=== PATIENT | female | born 1960 | race Caucasian/White ===

== ENCOUNTER 2017-02-13 13:45 | Outpatient (CLI) | payer BC | END 2017-02-13 13:46 | disposition home or self-care (01) | LOC: BICMAMMO 13:45 | PROVIDERS: ATTEND Orthopaedic Surgery Orthopaedic Surgery of the Spine | DX: Z12.31 Encounter for screening mammogram for malignant neoplasm of breast (principal) | CPT/HCPCS: 77063 ==

== ENCOUNTER 2018-02-25 16:10 | Outpatient (CLI) | payer BC | END 2018-02-25 16:11 | disposition home or self-care (01) | LOC: BICMAMMO 16:10 | PROVIDERS: ATTEND Obstetrics & Gynecology | DX: Z12.31 Encounter for screening mammogram for malignant neoplasm of breast (principal) | CPT/HCPCS: 77063; 77067 ==

== ENCOUNTER 2019-10-02 01:12 | Emergency (ER) | payer BC ==
[2019-10-02] MEDS ORDERED: Mag-Al 1200 mg/1200 mg/30 ML UDCUP ONE (01:41)
[2019-10-02] MEDS ORDERED: Lidocaine Viscous Sol 2% 15 ml UD Cup ONE (01:41)
[2019-10-02] MEDS ORDERED: Metoclopramide HCl 10 MG/2 ML VIAL ONE (01:45)
[2019-10-02] MEDS ORDERED: diphenhydrAMINE 50 MG/ML VIAL ONE (01:45)
[2019-10-02 02:08] LABS: Hemoglobin 13.1 g/dL (12.0-16.0); Mean Corpuscular HGB CONC 32.6 g/dL (32.0-36.0); Mean Corpuscular Hemoglobin 30.6 pg (27.0-31.0); Mean Corpuscular Volume 93.7 fL (78.0-98.0); Mean Platelet Volume 9.3 fL (7.4-10.4); Platelet Count 318 thou/uL (130-400); RBC Distribution Width 12.7 % (11.5-14.5); White Blood Cell (WBC) Count 15.8 thou/uL (4.8-10.8)
[2019-10-02] MEDS ORDERED: Dicyclomine 20 MG TAB ONE (02:17)
[2019-10-02 02:23] LABS: Anion Gap 14 mmol/L (10-20); BUN (Urea Nitrogen) 22 mg/dL (9.8-20.1); Calc. Creatinine Clearance 0 mL/min (70-130); Calcium 10.4 mg/dL (7.8-10.44); Carbon Dioxide 25 mmol/L (22-29); Chloride 104 mmol/L (98-107); Estimated GFR-MDRD 82; Glucose 137 mg/dL (70-105); Lipase 17 U/L (8-78); Potassium 4.2 mmol/L (3.5-5.1); Sodium 139 mmol/L (136-145)
[2019-10-02 02:51] LABS: Band 6 % (5-11); Eosinophils 1 % (0-10); Lymphocytes 17 % (21-51); MDiff Complete? YES; Monocytes 6 % (0-10); Neutrophil 70 % (42-75); Platelet Morphology Comment Appears Adequate
[2019-10-02 03:40] LABS: ALT (SGPT) 18 U/L (8-55); AST (SGOT) 23 U/L (5-34); Alkaline Phosphatase 79 U/L (40-110); Bilirubin, Direct 0.1 mg/dL (0.1-0.3); Bilirubin, Total 0.4 mg/dL (0.2-1.2); Protein, Total 7.1 g/dL (6.0-8.3)
[2019-10-02 03:41] LABS: Bilirubin Negative (Negative); Blood, Urine Negative (Negative); Clarity Clear (Clear); Glucose, Urine (Dipstick) Normal (Negative); Ketone, Urine Negative (Negative); Leukocyte Negative Leu/uL (Negative); Nitrite Negative (Negative); Protein, Urine (Dipstick) Negative (Neg-Trace); Specific Gravity, Urine 1.017 (1.002-1.036); Urobilinogen Normal mg/dL (Less than 2)
== END 2019-10-02 04:11 | disposition home or self-care (01) ==
LOC: ERS 01:12
DX: K21.9 Gastro-esophageal reflux disease without esophagitis (principal); E78.5 Hyperlipidemia, unspecified; F41.9 Anxiety disorder, unspecified; F32.9 Major depressive disorder, single episode, unspecified; Z79.899 Other long term (current) drug therapy
CPT/HCPCS: 80048; 80076; 81003; 83690; 85025; 93005; 96365; 96366; 96375; J1200; J2765

== ENCOUNTER 2020-07-05 12:45 | Outpatient (CLI) | payer BC | END 2020-07-05 12:46 | disposition home or self-care (01) | LOC: CT 12:45 | PROVIDERS: ATTEND Surgery | DX: M50.30 Other cervical disc degeneration, unspecified cervical region (principal); R51.9 Headache, unspecified; M47.812 Spondylosis without myelopathy or radiculopathy, cervical region; M43.17 Spondylolisthesis, lumbosacral region; Z98.890 Other specified postprocedural states; Z98.1 Arthrodesis status | CPT/HCPCS: 72050; 72120; 72125; 72141 ==

== ENCOUNTER 2022-01-21 18:37 | Emergency (ER) | payer BC ==
[2022-01-21] MEDS ORDERED: Dexamethasone 10 MG/ML VIAL ONE (19:18)
[2022-01-21] MEDS ORDERED: Morphine 4 MG/ML VIAL ONE (19:18)
== END 2022-01-21 20:47 | disposition home or self-care (01) ==
LOC: ERS 18:37
DX: M79.662 Pain in left lower leg (principal); M51.36 Other intervertebral disc degeneration, lumbar region; I10 Essential (primary) hypertension; E78.5 Hyperlipidemia, unspecified; F17.210 Nicotine dependence, cigarettes, uncomplicated; Z79.899 Other long term (current) drug therapy
CPT/HCPCS: 96374; 96375; J1100; J2270

== ENCOUNTER 2022-01-24 11:56 | Outpatient (CLI) | payer BC ==
[2022-01-24 13:06] LABS: Hemoglobin 12.9 g/dL (12.0-15.5); Mean Corpuscular HGB CONC 33.1 g/dL (32.0-36.0); Mean Corpuscular Hemoglobin 29.9 pg (27.0-33.0); Mean Corpuscular Volume 90.5 fl (81.6-98.3); Mean Platelet Volume 10.2 fl (7.4-10.4); Platelet Count 333 10x3/uL (150-450); RBC Distribution Width 13.7 % (11.5-14.5); Red Blood Cell (RBC) Count 4.31 10x6/uL (3.90-5.03)
[2022-01-24 13:18] LABS: INR-International Normal Ratio 0.9; PTT 24.1 sec (22.0-33.0); Prothrombin Time 9.6 sec (9.5-12.1)
[2022-01-24 13:25] LABS: Anion Gap 14 mmol/L (10-20); BUN (Urea Nitrogen) 10 mg/dL (9.8-20.1); Calc. Creatinine Clearance 0 mL/min (70-130); Calcium 9.4 mg/dL (7.8-10.44); Carbon Dioxide 27 mmol/L (22-29); Chloride 104 mmol/L (98-107); Estimated GFR 97; Glucose 83 mg/dL (70-105); Potassium 4.3 mmol/L (3.5-5.1); Sodium 141 mmol/L (136-145)
== END 2022-01-24 11:57 | disposition home or self-care (01) ==
LOC: LABBT 11:56
PROVIDERS: ATTEND Surgery
DX: Z01.818 Encounter for other preprocedural examination (principal); M51.16 Intervertebral disc disorders with radiculopathy, lumbar region; M48.062 Spinal stenosis, lumbar region with neurogenic claudication
CPT/HCPCS: 80048; 85027; 85610; 85730; 93005; 93010

== ENCOUNTER 2022-01-25 10:20 | Observation (INO) | payer BC ==
[2022-01-25] MEDS ORDERED: Lidocaine 1% MPF 2 ML VIAL ONE (10:52)
[2022-01-25] MEDS ORDERED: Sodium Chloride 0.9% 100 ML ONE (10:52)
[2022-01-25] MEDS ORDERED: CEFAZOLIN 2 GM VIAL ONE (10:52)
[2022-01-25] MEDS ORDERED: Thrombin 5000 UNITS/5 ML VIAL ONE (11:01)
[2022-01-25 12:07] LABS: SARS-CoV-2 NAA Rapid Test Not Detected (NotDetected)
[2022-01-25] MEDS ORDERED: FENTANYL 50 MCG/ML 1 ML VIAL ONE (12:08)
[2022-01-25] MEDS ORDERED: fentaNYL PF 100 MCG/2 ML SYRINGE ONE ×3 (12:25→15:12)
[2022-01-25] MEDS ORDERED: Dexamethasone 20 MG/5 ML VIAL ONE (12:48)
[2022-01-25] MEDS ORDERED: Ondansetron PF 4 MG/2 ML Vial ONE (12:48)
[2022-01-25] MEDS ORDERED: PROPOFOL 200 MG/20 ML VIAL ONE (12:48)
[2022-01-25] MEDS ORDERED: PHENYLEPHRINE-NS 100 MCG/ML 10 ML SYRINGE ONE (12:48)
[2022-01-25] MEDS ORDERED: Rocuronium Bromide 10 MG/ML (10ML VIAL) ONE (12:48)
[2022-01-25] MEDS ORDERED: SUGAMMADEX SODIUM 200 MG/2 ML VIAL ONE (14:37)
[2022-01-25] MEDS ORDERED: Ondansetron PF 4 MG/2 ML Vial IVP PRN (15:00)
[2022-01-25] MEDS ORDERED: Acetaminophen 325 MG TAB PO PRN (15:00)
[2022-01-25] MEDS ORDERED: Acetaminophen/Codeine 30-300mg Tablet PO PRN (15:00)
[2022-01-25] MEDS ORDERED: diphenhydrAMINE 25 MG CAP PO PRN (15:00)
[2022-01-25] MEDS ORDERED: traMADol HCl 50 MG TAB PO PRN (15:00)
[2022-01-25] MEDS ORDERED: tiZANidine HCl 4 MG TAB PO PRN (15:03)
[2022-01-25] MEDS ORDERED: hydrALAZINE 20 MG/ML VIAL SLOW IVP PRN (15:03)
[2022-01-25] MEDS ORDERED: Morphine 4 MG/ML VIAL SLOW IVP PRN (16:06)
[2022-01-25] MEDS: Sodium Chloride 0.9% 1,000 ML IV SCH (16:14)
[2022-01-25 16:25] VITALS: BMI 29.2
[2022-01-25] MEDS: HYDROcodone/Acetaminophen 10/325 mg Tablet PO PRN (18:18)
[2022-01-25] MEDS: CEFAZOLIN 2 GM in Sodium Chloride 0.9% 100 ML IVPB SCH (22:23)
[2022-01-26 03:51] VITALS: TEMP 98.7
[2022-01-26] MEDS: Sodium Chloride 0.9% 1,000 ML IV SCH (06:04)
[2022-01-26] MEDS: CEFAZOLIN 2 GM in Sodium Chloride 0.9% 100 ML IVPB SCH (06:04)
[2022-01-26] MEDS ORDERED: metFORMIN XR 500 MG TAB PO SCH (08:00)
[2022-01-26] MEDS: HYDROcodone/Acetaminophen 10/325 mg Tablet PO PRN (08:58)
[2022-01-26] MEDS ORDERED: Loratadine 10 MG TAB PO SCH (09:00)
[2022-01-26] MEDS ORDERED: Lisinopril 10 MG TAB PO SCH (09:00)
[2022-01-26] MEDS ORDERED: FLUoxetine HCl 20 MG CAP PO SCH (09:00)
[2022-01-26] MEDS ORDERED: FLU VACC QS2022-23(6MOS UP)/PF 60 MCG/0.5 ML SYRINGE IM ONE (09:00)
[2022-01-26 09:03] VITALS: BP 148/79
[2022-01-26] MEDS ORDERED: Atorvastatin Calcium 10 MG TAB PO SCH (21:00)
== END 2022-01-26 10:06 | disposition home or self-care (01) ==
LOC: SDC 10:20 → MSONC 15:57
PROVIDERS: ADMIT Surgery; ATTEND Surgery
PROC: 01NB0ZZ Release Lumbar Nerve, Open Approach (ICD-10-PCS; principal; 2022-01-25)
PROC: 0SB20ZZ Excision of Lumbar Vertebral Disc, Open Approach (ICD-10-PCS; 2022-01-25)
DX: M48.061 Spinal stenosis, lumbar region without neurogenic claudication (principal); M51.16 Intervertebral disc disorders with radiculopathy, lumbar region; M19.90 Unspecified osteoarthritis, unspecified site; F17.210 Nicotine dependence, cigarettes, uncomplicated; Z79.84 Long term (current) use of oral hypoglycemic drugs; Z79.899 Other long term (current) drug therapy; Z88.6 Allergy status to analgesic agent; Z20.822 Contact with and (suspected) exposure to COVID-19
CPT/HCPCS: 96374; 96375; 96376; G0378; J1100; J2270; J2405; J2704; J3010; J3370; J3490; J7050; U0002

== ENCOUNTER 2022-06-06 10:30 | Outpatient (CLI) | payer BC | END 2022-06-06 10:31 | disposition home or self-care (01) | LOC: TBSIIMAG 10:30 | PROVIDERS: ATTEND Surgery | DX: M54.16 Radiculopathy, lumbar region (principal); M47.816 Spondylosis without myelopathy or radiculopathy, lumbar region; Z98.890 Other specified postprocedural states | CPT/HCPCS: 72100; 72148 ==